=== PATIENT | female | born 1980 | race Caucasian/White ===

== ENCOUNTER 2022-03-13 10:34 | Day surgery (SDC) | payer OTHER ==
[2022-03-13 10:45] VITALS: RESP 18; TEMP 98
[2022-03-13] MEDS ORDERED: IRON SUCROSE INJECTION 200 MG/100 ML BAG IVPB ONE (11:00)
[2022-03-13 12:26] VITALS: BP 107/56; PULSE 78
== END 2022-03-13 12:26 | disposition home or self-care (01) ==
LOC: FINFUSION 10:34 → FM/S 10:35 → FINFUSION 12:26
PROVIDERS: ATTEND Family Medicine
PROC: 3E033GC Introduction of Other Therapeutic Substance into Peripheral Vein, Percutaneous Approach (ICD-10-PCS; principal; 2022-03-13)
DX: D50.9 Iron deficiency anemia, unspecified (principal)
CPT/HCPCS: 96365; J1756

== ENCOUNTER 2022-03-20 10:50 | Day surgery (SDC) | payer OTHER ==
[2022-03-20] MEDS ORDERED: IRON SUCROSE INJECTION 200 MG in SODIUM CHLORIDE 100 ML IVPB ONE (11:00)
[2022-03-20 12:50] VITALS: BP 100/64; PULSE 74; RESP 16; TEMP 98
== END 2022-03-20 13:13 | disposition home or self-care (01) ==
LOC: FINFUSION 10:50 → FM/S 10:54 → FINFUSION 13:13
PROVIDERS: ATTEND Family Medicine
PROC: 3E033GC Introduction of Other Therapeutic Substance into Peripheral Vein, Percutaneous Approach (ICD-10-PCS; principal; 2022-03-20)
DX: D50.9 Iron deficiency anemia, unspecified (principal)
CPT/HCPCS: 96365; J1756

== ENCOUNTER 2022-03-27 10:04 | Day surgery (SDC) | payer OTHER ==
[2022-03-27] MEDS ORDERED: FERRIC CARBOXYMALTOSE 750 MG in SODIUM CHLORIDE 250 ML IVPB SCH (11:15)
[2022-03-27 12:50] VITALS: BP 95/65; PULSE 63; RESP 18; TEMP 97.9
== END 2022-03-27 12:51 | disposition home or self-care (01) ==
LOC: FINFUSION 10:04 → FM/S 10:08 → FINFUSION 10:08 → FM/S 12:51 → FINFUSION 12:51
PROVIDERS: ATTEND Family Medicine
PROC: 3E033GC Introduction of Other Therapeutic Substance into Peripheral Vein, Percutaneous Approach (ICD-10-PCS; principal; 2022-03-27)
DX: D50.9 Iron deficiency anemia, unspecified (principal)
CPT/HCPCS: 81025; 96365; J1439

== ENCOUNTER 2022-04-03 11:23 | Day surgery (SDC) | payer OTHER ==
[2022-04-03] MEDS ORDERED: IRON SUCROSE INJECTION 200 MG/100 ML BAG IVPB ONE (12:15)
[2022-04-03 13:48] VITALS: BP 101/56; PULSE 66; RESP 17; TEMP 98.5
== END 2022-04-03 13:30 | disposition home or self-care (01) ==
LOC: FINFUSION 11:23 → FM/S 11:25 → FINFUSION 13:30
PROVIDERS: ATTEND Family Medicine
PROC: 3E033GC Introduction of Other Therapeutic Substance into Peripheral Vein, Percutaneous Approach (ICD-10-PCS; principal; 2022-04-03)
DX: D50.9 Iron deficiency anemia, unspecified (principal)
CPT/HCPCS: 96365; J1756

== ENCOUNTER 2022-04-10 11:34 | Day surgery (SDC) | payer OTHER ==
[2022-04-10] MEDS ORDERED: IRON SUCROSE INJECTION 200 MG/100 ML BAG IVPB ONE (12:45)
[2022-04-10 13:57] VITALS: BP 97/59; PULSE 65; RESP 12; TEMP 97.4
== END 2022-04-10 14:18 | disposition home or self-care (01) ==
LOC: FINFUSION 11:34 → FM/S 12:29 → FINFUSION 14:18
PROVIDERS: ATTEND Family Medicine
PROC: 3E033GC Introduction of Other Therapeutic Substance into Peripheral Vein, Percutaneous Approach (ICD-10-PCS; principal; 2022-04-10)
DX: D50.9 Iron deficiency anemia, unspecified (principal)
CPT/HCPCS: 81025; 96365; J1756